=== PATIENT | female | born 1965 | race Caucasian/White ===

== ENCOUNTER 2016-12-16 19:29 | Emergency (ER) | payer BC ==
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
[2016-12-16] MEDS ORDERED: cefTRIAXone 1,000 MG in Lidocaine 1% 4 ML IM ONE (20:28)
[2016-12-16 21:11] VITALS: BP 121/64
== END 2016-12-16 21:00 | disposition home or self-care (01) ==
LOC: MW.ED 19:29
DX: J02.9 Acute pharyngitis, unspecified (principal); K21.9 Gastro-esophageal reflux disease without esophagitis; Z90.49 Acquired absence of other specified parts of digestive tract; Z88.2 Allergy status to sulfonamides; Z91.09 Other allergy status, other than to drugs and biological substances; R13.10 Dysphagia, unspecified
CPT/HCPCS: 74220; 87081; 87880; 99283; J0696

== ENCOUNTER → 2017-01-08 | Outpatient (CLI) | payer BC | LOC: MW.CHFP 14:46 | PROVIDERS: ATTEND Physician Assistant | DX: R94.6 Abnormal results of thyroid function studies (principal) | CPT/HCPCS: 36415; 84439; 84481 ==

== ENCOUNTER → 2017-01-10 | Outpatient (CLI) | payer BC | LOC: MW.CHFP 14:28 | PROVIDERS: ATTEND Physician Assistant | DX: E05.90 Thyrotoxicosis, unspecified without thyrotoxic crisis or storm (principal) | CPT/HCPCS: 36415; 84432; 86376; 86800 ==

== ENCOUNTER → 2017-01-16 | Outpatient (CLI) | payer BC ==
--- NOTE | 2017-01-17 15:45 | US ---
EXAM DATE: 01/16/17 PATIENT'S AGE: 51 Patient: CORAL DE OILVEIRA Facility: [place], [place] Site Site : 1965 Study: US Thyroid [id number]/16/2017 11:05:28 AM Ordering Physician: TERESA Final Report: HISTORY: Abnormal labs, hyperthyroid patient. Findings: Multiple grayscale static images from a but ultrasound evaluated. The right lobe of the thyroid measures 3.7 x 1.2 x 1.2 cm. There is a 8 x 6 x 5 mm echogenic nodule in the inferior right lobe of the thyroid. The isthmus is 3 mm in thickness. The left lobe of the thyroid measures 2.5 x 3.9 x 1.0 cm. No nodules seen. Impression: 1. Normal-sized thyroid. 2. 8 mm echogenic nodule in the inferior right lobe of the thyroid. Dictated by Charity Denson MD @ Jan 16 2017 10:58PM (Electronic Signature) Report Signed by Proxy. JUDITH
== END ==
LOC: MW.US 10:27
PROVIDERS: ATTEND Physician Assistant
DX: E05.90 Thyrotoxicosis, unspecified without thyrotoxic crisis or storm (principal); E04.1 Nontoxic single thyroid nodule; M54.2 Cervicalgia; Z98.1 Arthrodesis status
CPT/HCPCS: 72020; 72020-26; 76536-26; 76536-50

== ENCOUNTER → 2017-01-16 | Outpatient (CLI) | payer BC ==
--- NOTE | 2017-01-17 15:43 | CR ---
EXAM DATE: 01/16/17 PATIENT'S AGE: 51 Patient: CORAL DE OLIVEIRA Facility: [place], [place] Site . Site : 1965 Study: XRay Spine Cervical Lateral only [id number]/27/2017 11:02:29 AM Ordering Physician: Zoila Souza Final Report: INDICATION: Neck pain. TECHNIQUE : Cervical spine. 1 view COMPARISON: 10/17/2016 FINDINGS: Patient status post anterior and interbody fusion at C6-C7. Stable appearance to the surgical hardware from prior study. No abnormal prevertebral soft tissue swelling. Cervical spine alignment normal. IMPRESSION : 1. Anterior and interbody fusion at C6-C7. 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 No change in alignment. Dictated by Keyur Richardson MD @ Jan 16 2017 9:55PM (Electronic Signature) Report Signed by Proxy. JUDITH
== END ==
LOC: MW.DI 10:31
PROVIDERS: ATTEND Neurological Surgery
DX: M54.2 Cervicalgia (principal); Z98.1 Arthrodesis status
CPT/HCPCS: 72020; 72020-26

== ENCOUNTER → 2017-01-22 | Outpatient (CLI) | payer BC | LOC: MW.CHFP 15:43 | PROVIDERS: ATTEND Physician Assistant | DX: R94.6 Abnormal results of thyroid function studies (principal) | CPT/HCPCS: 36415; 84443 ==